=== PATIENT | male | born 1955 | race Caucasian/White ===

== ENCOUNTER 2017-05-31 13:19 | Emergency (ER) | payer MEDICARE, OTHER ==
[~2017-05-31] VITALS: Ht 182.9 cm; Wt 92.0 kg
[~2017-05-31 13:19] MED LIST: LISI-363 PO; METF500 PO; SIMV40 PO; TRAD5TAB PO
[2017-05-31 14:01] VITALS: BP 147/88; PULSE 84; RESP 16; TEMP 98.2; O2SAT 99
[2017-05-31] MEDS ORDERED: KETOROLAC TROMETHAMINE 60 MG/2 ML (IM) VIAL IM ONE (15:00)
[2017-05-31] MEDS ORDERED: METF500T PO (15:01)
[2017-05-31] MEDS ORDERED: SIMV40TA PO (15:01)
[2017-05-31] MEDS ORDERED: TRAD5TAB PO (15:01)
[2017-05-31] MEDS ORDERED: LISI-515 PO (15:01)
--- NOTE | 2017-05-31 15:44 | RADRPT ---
EXAM DATE/TIME: 05/31/2017 15:27 [place] COMPARISON: No previous studies available for comparison. INDICATIONS : Right lower rib pain, fell in the tub. MEDICAL HISTORY : None. SURGICAL HISTORY : back surgery ENCOUNTER: Initial ACUITY: 1 day PAIN SCORE: 8/10 LOCATION: Right ribs FINDINGS: Multiple views of the right ribs were performed. Fractures of the eighth through 10th ribs. No destr uctive lesions or areas of periosteal thickening are seen. Expiratory view of the chest is negative for pneumothorax. The mediastinal structures are midline. CONCLUSION: Fractures of the right eighth through 10th ribs. No pneumothorax is seen. Rian Gusman MD on May 31, 2017 at 15:41 Board Certified Radiologist. This report was verified electronically.
--- NOTE | 2017-05-31 16:06 | PD ---
HPI Chief Complaint: Fall Time Seen by Provider: 15:00 Travel History International Travel<30 days: No Contact w/Intl Traveler<30days: No Traveled to known affect area: No History of Present Illness HPI 61-year-old male presents emergency Department complaining of right lateral rib pain. Patient reports he slipped and fell while in the tub injuring his right ribs on the corner of the tub. He did not hit his head or have loss of consciousness. Patient is not anticoagulated. Patient reports pain only within the right lateral ribs no other injury. He denies shortness of breath, abdominal pain, headache. PFSH Past Medical History Medical History: Denies Significant Hx Hx Anticoagulant Therapy: No Cardiovascular Problems: No High Cholesterol: Yes Chemotherapy: No Cerebrovascular Accident: No Diabetes: Yes Patient Takes Glucophage: Yes Diminished Hearing: No Hypertension: Yes Respiratory: No Immunizations Current: Yes Triglycerides - High: Yes Tetanus Vaccination: < 5 Years Past Surgical History Hysterectomy: No Social History Alcohol Use: No ( ) Tobacco Use: Yes (1.5 ppd) Substance Use: No Allergies-Medications (Allergen,Severity, Reaction): Coded Allergies: No Known Allergies (Unverified , 11/12/15) Reported Meds & Prescriptions Reported Meds & Active Scripts Active Reported Simvastatin 40 Mg Tab 40 Mg PO HS Metformin (Metformin HCl) 500 Mg Tab 500 Mg PO BIDPC With meals Lisinopril 20 Mg Tab 20 Mg PO DAILY Tradjenta (Linagliptin) 5 Mg Tab 5 Mg PO DAILY Review of Systems Except as stated in HPI: all other systems reviewed are Neg General / Constitutional: No: Fever Eyes: No: Visual changes HENT: No: Headaches Cardiovascular: Positive: Other (rib pain) Respiratory: No: Shortness of Breath Gastrointestinal: No: Abdominal Pain Genitourinary: No: Dysuria Musculoskeletal: No: Pain Physical Exam Narrative GENERAL: Alert well-appearing male in moderate distress due to pain SKIN: Focused skin assessment warm/dry. HEAD: Atraumatic. Normocephalic. EYES: Pupils equal and round. No scleral icterus. No injection or drainage. ENT: No nasal bleeding or discharge. Mucous membranes pink and moist. NECK: Trachea midline. No JVD. CARDIOVASCULAR: Regular rate and rhythm. No murmur appreciated. CHEST: Point tenderness over the right posterior/lateral lower ribs. No crepitus. RESPIRATORY: No accessory muscle use. Clear to auscultation. Breath sounds equal bilaterally. GASTROINTESTINAL: Abdomen soft, non-tender, nondistended. Hepatic and splenic margins not palpable. MUSCULOSKELETAL: No obvious deformities. No clubbing. No cyanosis. No edema. NEUROLOGICAL: Awake and alert. No obvious cranial nerve deficits. Motor grossly within normal limits. Normal speech. PSYCHIATRIC: Appropriate mood and affect; insight and judgment normal. Data Data Last Documented VS Vital Signs Date Time Temp Pulse Resp B/P Pulse Ox O2 Delivery O2 Flow Rate FiO2 05/31/17 14:01 98.2 84 16 147/88 99 Orders Ribs, Uni (W/Exp Cxr-Min 3vw) (05/31/17 ) Ketorolac Inj (Toradol Inj) (05/31/17 15:00) [facility] Medical Decision Making Medical Screen Exam Complete: Yes Emergency Medical Condition: Yes Differential Diagnosis Rib fracture, rib contusion, pneumothorax Narrative Course 61-year-old male presents emergency department for evaluation of right rib pain status post fall while in the tub. Patient denies head injury or loss of consciousness. Patient is not anticoagulated. Physical exam show point tenderness to the posterior lateral right ribs. There is no crepitus. lung sounds are clear. X-ray show right rib fractures of ribs 8 through 10. Patient reports pain is greatly improved after the shot of Toradol. Patient was discharged home with pain medicine. Return precautions discussed. Patient verbalizes understanding agrees to plan. Diagnosis Primary Impression: Ribs, multiple fractures Qualified Code: S22.41XA - Closed fracture of multiple ribs of right side, initial encounter Referrals: Primary Care Physician Additional Instructions: Take the pain medication as prescribed. Using incentive spirometer as directed. Return to the emergency department if he develops new or worsening symptoms such as severe increasing pain, shortness of breath. Scripts Hydrocodone-Acetaminophen (Tracy)5-325 mg Tab1 Tab PO Q6H PRN (PAIN) #15 TAB Ref 0 Prov:Roslyn Feldman 05/31/17 Disposition: 01 DISCHARGE HOME Condition: Stable Roslyn Feldman May 31, 2017 16:06
[2017-05-31] MEDS ORDERED: NORC5TAB PO (16:15)
== END 2017-05-31 17:00 | disposition home or self-care (01) ==
LOC: NEPD 13:19
DX: S22.41XA Multiple fractures of ribs, right side, initial encounter for closed fracture (principal); W18.2XXA Fall in (into) shower or empty bathtub, initial encounter
CPT/HCPCS: 71101; 96372; 99284; J1885